=== PATIENT | female | born 1955 | race Caucasian/White ===

== ENCOUNTER → 2016-03-20 | Outpatient (CLI) | payer BC ==
[~2016-03-20] VITALS: Ht 165.1 cm; Wt 74.4 kg
[~2016-03-20] MED LIST: ATORVASTATIN CA80 MG PO; OXYBUTYNIN CHLO10 MG PO; RANITIDINE HCL150 MG PO; VENLAFAXINE HC150 M1 PO; ZESTORETIC 20-1 EAC1 PO
== END | disposition home or self-care (01) ==
LOC: AMB 07:11
PROC: 0DJD8ZZ Inspection of Lower Intestinal Tract, Via Natural or Artificial Opening Endoscopic (ICD-10-PCS; principal; 2016-03-20)
DX: Z12.11 Encounter for screening for malignant neoplasm of colon (principal); K57.90 Diverticulosis of intestine, part unspecified, without perforation or abscess without bleeding; K64.8 Other hemorrhoids; I10 Essential (primary) hypertension; K21.9 Gastro-esophageal reflux disease without esophagitis
CPT/HCPCS: 93005; J2250; J3010